=== PATIENT | female | born 1975 | race Hispanic/Latino ===

== ENCOUNTER 2024-03-05 19:31 | Emergency (ER) | payer OTHER ==
[~2024-03-05] VITALS: Ht 165.1 cm; Wt 112.5 kg
[2024-03-05 20:39] LABS: APPEARANCE,URINE CLEAR (CLEAR); BILIRUBIN,URINE NEGATIVE (NEGATIVE); COLOR,URINE LIGHT-YELLOW (YELLOW); GLUCOSE, URINE (UA) >=1000 mg/dL (NEGATIVE); KETONES,URINE 5 mg/dL (NEGATIVE); LEUKOCYTE ESTERASE ,URINE NEGATIVE Leu/uL (NEGATIVE); NITRATE,URINE NEGATIVE (NEGATIVE); OCCULT BLOOD,URINE NEGATIVE (NEGATIVE); PH,URINE 5.5 (5.0-8.0); PROTEIN,URINE 30 mg/dL (NEGATIVE); UROBILINOGEN,URINE 0.2 mg/dL (0.2-1.0)
[2024-03-05 20:40] LABS: ADD UA MICROSCOPIC YES
[2024-03-05 20:43] LABS: MUCUS,URINE RARE LPF (None Seen); SQUAMOUS EPITHELIAL CELL,UR MANY /HPF (0-2)
[2024-03-05] MEDS: HYDRALAZINE 20MG/ML VIAL IV ONE (21:48)
[2024-03-05] MEDS: MORPHINE 2 MG SYG IVP ONE (21:48)
[2024-03-05] MEDS: CYCLOBENZAPRINE HCL 10 MG TABLET PO ONE (21:48)
[2024-03-05] MEDS ORDERED: MELO10CA3 PO (23:25)
[2024-03-05] MEDS ORDERED: CYCL7.5T27 PO (23:25)
[2024-03-05] MEDS ORDERED: PRED10TA23 PO (23:25)
[2024-03-05] MEDS: DEXAMETHASONE SOD PHOSPHATE 4 MG/ML 1ML VIAL IVP ONE (23:28)
[2024-03-05] MEDS: MORPHINE 4 MG SYG IVP ONE (23:49)
[2024-03-05 23:51] VITALS: BP 162/88; PULSE 90; RESP 20; O2SAT 99
== END 2024-03-06 00:26 | disposition home or self-care (01) ==
LOC: EDH 19:31
DX: S29.012A Strain of muscle and tendon of back wall of thorax, initial encounter (principal); S23.3XXA Sprain of ligaments of thoracic spine, initial encounter; I10 Essential (primary) hypertension; Z79.899 Other long term (current) drug therapy; X58.XXXA Exposure to other specified factors, initial encounter; Y93.89 Activity, other specified; Y92.89 Other specified places as the place of occurrence of the external cause; Y99.8 Other external cause status
CPT/HCPCS: 99284; 96374; 96375; 81001; 72070; 96376; J1100; J2270 ×2; J0360